=== PATIENT | female | born 1995 | race American Indian/Alaskan Native ===

== ENCOUNTER 2021-03-20 12:51 | Emergency (ER) | payer SELFPAY ==
[2021-03-20 14:46] VITALS: BP 99/55
== END 2021-03-20 18:59 | disposition left against medical advice (07) ==
LOC: ED 12:51
DX: Z11.3 Encounter for screening for infections with a predominantly sexual mode of transmission (principal); Z53.21 Procedure and treatment not carried out due to patient leaving prior to being seen by health care provider